=== PATIENT | male | born 1970 | race Caucasian/White ===

== ENCOUNTER 2016-10-20 18:10 | Emergency (ER) | payer OTHER ==
[2016-10-20 18:26] VITALS: BP 153/87; PULSE 95; TEMP 97.6; BMI 37.8
--- NOTE | 2016-10-20 18:27 | PDOC ---
Attending Attestation - Resident Resident Name: ReginaldAyad - ED Attending Attestation I have performed the following: I have examined & evaluated the patient, The case was reviewed & discussed with the resident, I agree w/resident's findings & plan, Exceptions are as noted - HPI HPI: 10/20/16 19:45 46y M hx of htn presents with worsening atraumatic L knee pain x 1 month, worse with ambulation/going down stairs/standing. Not significantly improved with tylenol, vicodin. No associated fever/chills, falls/injuries. 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 Pt went to PMD 1 month ago and then again yesterday when he got vicodin. On exam pt has mild tenderness of the medial aspect of his knee and medial aspect of the tibia. There is no erythema/induration/siognificant effusion. negative anterior/psterior draw, valgus/varus stress tests. will obtain xray to r/o occult fx, degereative dz pt given toradol for pain relief pt signed out to dr. Hernandez to fu with results and reassess the pt likely d/c with supportive measures and pmd and ortho fu - Physicial Exam PE: 10/23/16 08:28 see above - Medical Decision Making 10/23/16 08:28 see above
[2016-10-20] MEDS ORDERED: KETOROLAC TROMETHAMINE 60 MG/2 ML VIAL IM ONE (18:57)
[2016-10-20] MEDS ORDERED: KETOROLAC TROMETHAMINE 60 MG/2 ML VIAL ONE (19:00)
--- NOTE | 2016-10-20 19:19 | PDOC ---
History of Present Illness - General Chief Complaint: Pain Stated Complaint: LEFT KNEE PAIN Time Seen by Provider: 10/20/16 18:14 - History of Present Illness Initial Comments: 10/20/16 19:07 46 yo M with h/o HTN, DM, BL meniscus tear, and arthritis who presents with left knee pain. Pt. reports left knee pain following PCP visit 1 month ago. Upon manipulation of knee by PCP he states he heard a loud "pop." Following this visit his knee pain has rapidly, progressively worsened. He endorses difficulty with ambulation, back pain, and sharp shooting pains down medial leg. He denies swelling, redness, of involved knee. Denies fevers/chills, N/V, numbness/tingling, temperature changes, discoloration of extremities, or falls. Pain is refractory to Advil and Percocet. States that recently received Percocet from PCP yesterday with little to no relief and excessive drowsiness. Left knee brace aggravates pain and he states that BenGay cream has alleivated pain, but smell "bothers" him. Has h/o left knee varicosities and bilateral ultrasonography for suspected DVT 2 years ago at OSH. Denies recent travel, surgery, trauma. He requests steroid cream for left knee. 10/20/16 19:29 Past History - Past Medical History Allergies/Adverse Reactions: Allergies Allergy/AdvReac Type Severity Reaction Status Date / Time Penicillins Allergy Verified 10/14/11 00:38 Home Medications: Ambulatory Orders Metformin HCl [Glucophage] 1,000 mg PO BID 04/14/13 Amlodipine Besylate [Norvasc -] 5 mg PO DAILY 10/20/16 Diclofenac Sodium [Voltaren] 100 gm TP QID PRN #120 gel..gram. 10/20/16 Insulin Glargine,Hum.rec.anlog [Lantus Solostar PEN (NF)] 30 units SQ HS Liraglutide [Victoza -] 1.8 mg SQ DAILY@0700 10/20/16 Omeprazole 40 mg PO DAILY 10/20/16 Diabetes: Yes GI Disorders: Yes HTN: Yes Hypercholesterolemia: Yes - Immunization History Td Vaccination: Yes Immunization Up to Date: Yes - Psycho/Social/Smoking Cessation Hx Anxiety: No Suicidal Ideation: No Smoking Status: Yes Smoking History: Current every day smoker Have you smoked in the past 12 months: Yes Number of Cigarettes Smoked Daily: 5 Cigars Per Day: 0 Information on smoking cessation initiated: Yes 'Breaking Loose' booklet given: 04/14/13 Hx Alcohol Use: No Drug/Substance Use Hx: No Substance Use Type: None Hx Substance Use Treatment: No Review of Systems - Review of Systems Comments:: 10/20/16 19:20 GENERAL/CONSTITUTIONAL: No fever or chills. No weakness. HEAD, EYES, EARS, NOSE AND THROAT: No change in vision. No ear pain or discharge. No sore throat. CARDIOVASCULAR: No chest pain or shortness of breath RESPIRATORY: No cough, wheezing, or hemoptysis. GASTROINTESTINAL: No nausea, vomiting, diarrhea or constipation. GENITOURINARY: No dysuria, frequency, or change in urination. MUSCULOSKELETAL: + Left knee pain and lower back pain. SKIN: No rash NEUROLOGIC: No headache, vertigo, loss of consciousness, or change in strength/ sensation. ENDOCRINE: No increased thirst. No abnormal weight change HEMATOLOGIC/LYMPHATIC: No anemia, easy bleeding, or history of blood clots. ALLERGIC/IMMUNOLOGIC: No hives or skin allergy. *Physical Exam - Vital Signs Last Vital Signs Temp Pulse Resp BP Pulse Ox 97.6 F 95 H 16 153/87 98 10/20/16 18:14 10/20/16 18:14 10/20/16 18:14 10/20/16 18:14 10/20/16 18:14 - Physical Exam Comments: 10/20/16 19:23 GENERAL: Awake, alert, and fully oriented, in no acute distress HEAD: No signs of trauma, normocephalic, atraumatic NECK: Normal ROM, supple, no lymphadenopathy, JVD, or masses LUNGS: No distress, speaks full sentences, clear to auscultation bilaterally HEART: Regular rate and rhythm, normal S1 and S2, no murmurs, rubs or gallops, peripheral pulses normal and equal bilaterally. EXTREMITIES: + Varicosities through left extremity. Normal inspection, Normal range of motion, no edema. No clubbing or cyanosis. Knee Exam:Left knee tenderness to palpation at tibial plateau and diffuse medial patellar tenderness. Absent warmth, erythema, swelling, effusion, crepitus, or echymosis. Negative anterior or posterior drawer sign. Negative valgus/varus. Absent bony deformities. NEUROLOGICAL: Cranial nerves II through XII grossly intact. Normal speech, normal gait, no focal sensorimotor deficits SKIN: Warm, Dry, normal turgor, no rashes or lesions noted. Medical Decision Making - Medical Decision Making 46 yo M with h/o HTN, DM, BL meniscus tear, and arthritis who presents with left knee pain following manipulation of knee by PCP 1 month ago. He denies swelling, redness, of involved knee. Denies fevers/chills, N/V, numbness/ tingling, temperature changes, discoloration of extremities, or falls. Pain is refractory to Advil and Percocet. Physical exam reveals tibial plateau and diffuse medial patellar tenderness. Absent effusion/warmth/redness of left knee. Low suspicion for septic joint involvement. DDx: Tibial fracture, Ligamentous sprain/strain ED Course: - KNEE 2 POST LEFT - LEG TIB FIB LEFT - KETOROLAC INJECTION 60 MG IM *DC/Admit/Observation/Transfer Diagnosis at time of Disposition: Knee pain Qualifiers: Chronicity: acute Laterality: left Qualified Code(s): M25.562 - Pain in left knee - Discharge Dispostion Disposition: HOME Condition at time of disposition: Good - Prescriptions Prescriptions: Diclofenac Sodium [Voltaren] 100 gm TP QID PRN #120 gel..gram. PRN Reason: Pain - Referrals Referrals: Dany Rueda MD [Staff Physician] - Munira Patton [Primary Care Provider] - - Patient Instructions Printed Discharge Instructions: DI for Knee Pain Additional Instructions: return to the ED for severe pain, red hot tender swollen knee. Stop taking the celebrex while you are using the volatren. Make sure that you follow up with your PMD and orthopedics. - Attestations Physician Attestion: 10/24/16 06:18 I, Dr. Ayad Montelongo, attest that this document has been prepared under my direction and personally reviewed by me in its entirety. I further attest, that it accurately reflects all work, treatment, procedures and medical decision -making performed by me.
--- NOTE | 2016-10-20 20:13 | PDOC ---
*Physical Exam - Vital Signs Last Vital Signs Temp Pulse Resp BP Pulse Ox 97.6 F 95 H 16 153/87 98 10/20/16 18:14 10/20/16 18:14 10/20/16 18:14 10/20/16 18:14 10/20/16 18:14 ED Treatment Course - Medications Given in the ED: ED Medications Discontinued Medications Generic Name Dose Route Start Last Admin Trade Name Freq PRN Reason Stop Dose Admin Ketorolac Tromethamine 60 mg 10/20/16 18:57 10/20/16 19:07 Toradol Injection - IM 10/20/16 18:58 60 mg ONCE ONE Administration Medical Decision Making - Medical Decision Making 10/20/16 20:12 xrays show signs of osteoarthritis but no fracture. Will discharge patient home. Patient advised to stop celebrex which he has only been taking intermittently when he starts voltaren gel. Patient referred to orthopedics. *DC/Admit/Observation/Transfer Diagnosis at time of Disposition: Knee pain Qualifiers: Chronicity: acute Laterality: left Qualified Code(s): M25.562 - Pain in left knee - Discharge Dispostion Disposition: HOME Condition at time of disposition: Good Admit: No - Prescriptions Prescriptions: Diclofenac Sodium [Voltaren] 100 gm TP QID PRN #120 gel..gram. PRN Reason: Pain - Referrals Referrals: Munira Patton [Primary Care Provider] - Dany Rueda MD [Staff Physician] - - Patient Instructions Printed Discharge Instructions: DI for Knee Pain Additional Instructions: return to the ED for severe pain, red hot tender swollen knee. Stop taking the celebrex while you are using the volatren. Make sure that you follow up with your PMD and orthopedics. - Post Discharge Activity
== END 2016-10-20 20:28 | disposition home or self-care (01) ==
LOC: FER 18:10
PROC: 3E0233Z Introduction of Anti-inflammatory into Muscle, Percutaneous Approach (ICD-10-PCS; principal; 2016-10-20)
DX: M25.562 Pain in left knee (principal); I10 Essential (primary) hypertension; E11.9 Type 2 diabetes mellitus without complications; M19.90 Unspecified osteoarthritis, unspecified site; Z88.0 Allergy status to penicillin
CPT/HCPCS: 73560-TC-LT; 73590-TC-LT; 96372; 99282-25

== ENCOUNTER 2016-11-05 18:35 | Emergency (ER) | payer OTHER ==
--- NOTE | 2016-11-05 18:46 | PDOC ---
History of Present Illness <Brandon John - Last Filed: 11/05/16 18:46> <Aidee Ghotra - Last Filed: 11/05/16 19:40> <Valery Lopez - Last Filed: 11/05/16 19:40> - General Chief Complaint: Injury Stated Complaint: RT KNEE PAIN Time Seen by Provider: 11/05/16 18:46 Past History - Past Medical History Diabetes: Yes GI Disorders: Yes HTN: Yes Hypercholesterolemia: Yes - Immunization History Td Vaccination: Yes Immunization Up to Date: Yes - Psycho/Social/Smoking Cessation Hx Anxiety: No Suicidal Ideation: No Smoking Status: Yes Smoking History: Current every day smoker Have you smoked in the past 12 months: Yes Number of Cigarettes Smoked Daily: 10 Cigars Per Day: 0 Information on smoking cessation initiated: Yes 'Breaking Loose' booklet given: 11/05/16 Hx Alcohol Use: No Drug/Substance Use Hx: No Substance Use Type: None Hx Substance Use Treatment: No <Brandon John - Last Filed: 11/05/16 18:46> <Aidee Ghotra - Last Filed: 11/05/16 19:40> <Valery Lopez - Last Filed: 11/05/16 19:40> - Past Medical History Allergies/Adverse Reactions: Allergies Allergy/AdvReac Type Severity Reaction Status Date / Time Penicillins Allergy Verified 11/05/16 18:37 Home Medications: Ambulatory Orders Metformin HCl [Glucophage] 1,000 mg PO BID 04/14/13 Amlodipine Besylate [Norvasc -] 5 mg PO DAILY 10/20/16 Diclofenac Sodium [Voltaren] 100 gm TP QID PRN #120 gel..gram. 10/20/16 Insulin Glargine,Hum.rec.anlog [Lantus Solostar PEN (NF)] 30 units SQ HS Liraglutide [Victoza -] 1.8 mg SQ DAILY@0700 10/20/16 Omeprazole 40 mg PO DAILY 10/20/16 *Physical Exam - Vital Signs Last Vital Signs Temp Pulse Resp BP Pulse Ox 98.4 F 85 18 124/70 97 11/05/16 18:35 11/05/16 18:35 11/05/16 18:35 11/05/16 18:35 11/05/16 18:35 <Brandon John - Last Filed: 11/05/16 18:46> - Vital Signs Last Vital Signs Temp Pulse Resp BP Pulse Ox 98.4 F 85 18 124/70 97 11/05/16 18:35 11/05/16 18:35 11/05/16 18:35 11/05/16 18:35 11/05/16 18:35 <Aidee Ghotra - Last Filed: 11/05/16 19:40> - Vital Signs Last Vital Signs Temp Pulse Resp BP Pulse Ox 98.4 F 85 18 124/70 97 11/05/16 18:35 11/05/16 18:35 11/05/16 18:35 11/05/16 18:35 11/05/16 18:35 <Valery Lopez - Last Filed: 11/05/16 19:40> *DC/Admit/Observation/Transfer <Brandon John - Last Filed: 11/05/16 18:46> <Aidee Ghotra - Last Filed: 11/05/16 19:40> - Discharge Dispostion Admit: No <Valery Lopez - Last Filed: 11/05/16 19:40> Diagnosis at time of Disposition: Knee pain - Discharge Dispostion Disposition: AGAINST MEDICAL ADVICE Condition at time of disposition: Stable
[2016-11-05 18:47] VITALS: BP 124/70; PULSE 85; TEMP 98.4; BMI 37.8
== END 2016-11-05 19:42 | disposition left against medical advice (07) ==
LOC: FER 18:35
DX: M25.561 Pain in right knee (principal); F17.210 Nicotine dependence, cigarettes, uncomplicated; E11.9 Type 2 diabetes mellitus without complications; E78.00 Pure hypercholesterolemia, unspecified
CPT/HCPCS: 73560-TC-RT; 99282-25

== ENCOUNTER 2017-04-15 10:19 | Inpatient (IN) | payer OTHER ==
--- NOTE | 2017-04-15 09:15 | HP ---
Admitting History and Physical - Admission Chief Complaint: left knee osteoarthritis x years History of Present Illness: 46 year old male presenting in regard to his left knee. Longstanding history of left knee osteoarthritis. Patient complains of pain, limited ROM, difficulty ambulating and difficulty with ADLs. Patient has failed conservative treatment measures including PO medication, activity modification, injections and an exercise program. At this point, patient would like to proceed with a left total knee arthroplasty. History Source: Patient - Past Medical History Cardiovascular: Yes: HTN Gastrointestinal: Yes: GERD Psych: Yes: Depression Endocrine: Yes: Diabetes Mellitus - Past Surgical History Additional Past Surgical History: see written history & physical - Smoking History Smoking history: Current every day smoker Have you smoked in the past 12 months: Yes Aproximately how many cigarettes per day: 10 - Alcohol/Substance Use Hx Alcohol Use: No Home Medications - Allergies Allergies/Adverse Reactions: Allergies Allergy/AdvReac Type Severity Reaction Status Date / Time Penicillins Allergy Severe Swelling Verified 04/06/17 15:09 - Home Medications Home Medications: Ambulatory Orders Metformin HCl [Glucophage] 1,000 mg PO BID 04/14/13 Amlodipine Besylate [Norvasc -] 5 mg PO DAILY 10/20/16 Insulin Glargine,Hum.rec.anlog [Lantus Solostar PEN (NF)] 30 units SQ HS Liraglutide [Victoza -] 1.8 mg SQ DAILY@0700 10/20/16 Omeprazole 20 mg PO DAILY 10/20/16 Bupropion HCl [Bupropion HCl ER] 450 mg PO DAILY 04/06/17 Hydrochlorothiazide 25 mg PO DAILY 04/06/17 Oxycodone HCl/Acetaminophen [Percocet 5-325 mg Tablet] 1 tab PO Q4H PRN Simvastatin [Zocor -] 5 mg PO HS 04/06/17 Terbinafine HCl 250 mg PO DAILY 04/06/17 Review of Systems - Review of Systems Musculoskeletal: reports: Crepitus (left knee), Decreased ROM (left knee), Joint Pain (left knee), Joint Swelling (left knee) Physical Examination Constitutional: Yes: Well Nourished Eyes: Yes: Conjunctiva Clear HENT: Yes: Atraumatic, Normocephalic Neck: Yes: Supple Cardiovascular: Yes: Regular Rate and Rhythm Respiratory: Yes: Regular ...Rectal Exam: Yes: Deferred Musculoskeletal: Yes: Joint Stiffness (left knee), Joint Swelling (left knee) Assessment/Plan 46 year old male presenting in regard to his left knee. Longstanding history of left knee osteoarthritis. Patient complains of pain, limited ROM, difficulty ambulating and difficulty with ADLs. Patient has failed conservative treatment measures including PO medication, activity modification, injections and an exercise program. Pros, cons, risks, benefits and alternatives of a left total knee arthroplasty were discussed. Patient confirms their understanding, patient would like to proceed with a left total knee arthroplasty.
[~2017-04-15 10:19] MED LIST: CEFAZOLIN 2 GM in DEXTROSE 5%-WATER - 50 ML IVPB ONE; CELECOXIB 200 MG CAPSULE PO ONE; GABAPENTIN 300 MG CAPSULE (FP) PO ONE; PANTOPRAZOLE 40 MG TABLET (FP) PO ONE; ROPIVICAINE 0.2%/MORPH PF/KETOROLAC - 51ML DISP.SYRINGE IA ONE; TRANEXAMIC ACID 1000 MG/10 ML VIAL IVPUSH ONE; oxyCODONE HCL 10 MG SUSTAINED ACTING TABLET PO ONE
[2017-04-15] MEDS ORDERED: PANTOPRAZOLE 40 MG TABLET (FP) ONE (10:42)
[2017-04-15] MEDS ORDERED: GABAPENTIN 300 MG CAPSULE (FP) ONE (10:43)
[2017-04-15] MEDS ORDERED: CELECOXIB 200 MG CAPSULE ONE (10:43)
[2017-04-15] MEDS ORDERED: oxyCODONE HCL 10 MG SUSTAINED ACTING TABLET ONE (10:43)
[2017-04-15 11:36] VITALS: BMI 38.7
[2017-04-15] MEDS ORDERED: ceFAZolin SODIUM 1 GM VIAL ONE ×2 (13:31→15:55)
[2017-04-15] MEDS ORDERED: TRANEXAMIC ACID 1000 MG/10 ML VIAL ONE ×2 (13:31→15:56)
[2017-04-15] MEDS ORDERED: VANCOMYCIN 1,000 MG VIAL (RESTRICTED TO ID ONLY) ONE ×2 (13:32→15:56)
[2017-04-15] MEDS ORDERED: THROMBIN (BOVINE) 5,000 UNIT VIAL TP ONE (13:32)
[2017-04-15] MEDS ORDERED: ROPIVICAINE 0.2%/MORPH PF/KETOROLAC - 51ML DISP.SYRINGE IA ONE ×2 (13:32→18:03)
[2017-04-15] MEDS ORDERED: BUPIVACAINE HCL/PF 2.5 MG/ML - 30 ML VIAL IJ ONE (14:29)
[2017-04-15] MEDS ORDERED: DEXAMETHASONE SOD PHOSPHATE/PF 10 MG/ML SDV ONE (14:29)
[2017-04-15] MEDS ORDERED: MIDAZOLAM HCL 2 MG/2 ML SINGLE DOSE VIAL ONE ×2 (14:29→15:15)
[2017-04-15] MEDS ORDERED: BUPIVACAINE LIPOSOME/PF (EXPAREL) 266 MG/20 ML VIAL ONE (14:29)
[2017-04-15] MEDS ORDERED: GELATIN, ABSORBABLE 100 EACH SPONGE TP ONE (14:34)
[2017-04-15] MEDS ORDERED: SUCCINYLCHOLINE CHLORIDE 200 MG/10 ML VIAL ONE (15:15)
[2017-04-15] MEDS ORDERED: PROPOFOL 20 ML ONE ×7 (15:29→18:05)
[2017-04-15] MEDS ORDERED: DEXAMETHASONE SOD PHOSPHATE 4 MG/1 ML VIAL ONE (15:56)
[2017-04-15] MEDS ORDERED: ONDANSETRON 4 MG/2 ML VIAL ONE (15:56)
[2017-04-15] MEDS ORDERED: TRANEXAMIC ACID 1000 MG/10 ML VIAL IVPB ONE (18:03)
[2017-04-15] MEDS ORDERED: VANCOMYCIN 1,000 MG VIAL (RESTRICTED TO ID ONLY) IVPB ONE (18:04)
[2017-04-15] MEDS ORDERED: traMADol HCL 50 MG TABLET ONE (18:47)
[2017-04-15] MEDS ORDERED: ACETAMINOPHEN INJECTION 100 ML IVPB ONE (18:47)
[2017-04-15] MEDS ORDERED: KETOROLAC TROMETHAMINE 30 MG/1 ML VIAL ONE (18:48)
[2017-04-15] MEDS ORDERED: ONDANSETRON 4 MG/2 ML VIAL IVPUSH PRN ×2 (19:06→19:08)
[2017-04-15] MEDS ORDERED: oxyCODONE HCL 5 MG TABLET PO PRN (19:06)
--- NOTE | 2017-04-15 19:06 | OP ---
Operative Note - Note: Operative Date: 04/15/17 Pre-Operative Diagnosis: Left knee OA Operation: Left TKA Post-Operative Diagnosis: Same as Pre-op Surgeon: Chay Smart Program Consultant: Pat Penn Anesthesia: Spinal Estimated Blood Loss (mls): 300
[2017-04-15] MEDS ORDERED: MAGNESIUM HYDROX 2400MG/30ML ORAL SUSPENSION 30 ML CUP PO PRN (19:08)
[2017-04-15] MEDS ORDERED: MAG HYDROX/AL HYDROX/SIMETH 30 ML UNIT-DOSE CUP PO PRN (19:08)
[2017-04-15] MEDS ORDERED: LACTATED RINGERS SOLUTION 1,000 ML IV SCH (19:15)
[2017-04-15] MEDS: traMADol HCL 50 MG TABLET PO SCH (19:20)
[2017-04-15] MEDS: KETOROLAC TROMETHAMINE 30 MG/1 ML VIAL IVPUSH SCH (19:25)
[2017-04-15] MEDS: ACETAMINOPHEN 1000 MG/100 ML VIAL (NON FORMULARY) IVPB ONE (19:30)
[2017-04-15] MEDS ORDERED: GABAPENTIN 300 MG CAPSULE (FP) PO SCH (22:00)
[2017-04-15] MEDS: ASCORBIC ACID 500 MG TABLET (FP) PO SCH (22:19)
[2017-04-15] MEDS: SENNOSIDES/DOCUSATE COMBO (SENNA PLUS) TABLET (UD) PO SCH (22:20)
[2017-04-15] MEDS: ACETAMINOPHEN 325 MG TABLET (FP) PO SCH (22:20)
[2017-04-15] MEDS: GABAPENTIN 300 MG CAPSULE (FP) PO SCH (22:20)
[2017-04-15] MEDS: ATORVASTATIN CA 10 MG TABLET (FP) PO SCH (22:20)
[2017-04-15] MEDS: CELECOXIB 200 MG CAPSULE PO SCH (22:22)
[2017-04-15] MEDS: INSULIN DETEMIR 100 UNITS/ML MDV SQ SCH (22:26)
[2017-04-15] MEDS: oxyCODONE HCL 10 MG SUSTAINED ACTING TABLET PO SCH (22:55)
[2017-04-16] MEDS: oxyCODONE HCL 5 MG TABLET PO PRN ×5 (00:09→21:56)
[2017-04-16] MEDS ORDERED: DEXAMETHASONE SOD PHOSPHATE 10 MG/1 ML VIAL IVPB ONE (02:00)
[2017-04-16] MEDS: KETOROLAC TROMETHAMINE 30 MG/1 ML VIAL IVPUSH SCH ×3 (02:12→14:48)
[2017-04-16] MEDS: LACTATED RINGERS SOLUTION 1,000 ML IV SCH ×2 (02:27→20:09)
[2017-04-16] MEDS: ACETAMINOPHEN 325 MG TABLET (FP) PO SCH ×4 (06:11→23:17)
[2017-04-16] MEDS: ACETAMINOPHEN 1000 MG/100 ML VIAL (NON FORMULARY) IVPB ONE (07:29)
[2017-04-16] MEDS: ASPIRIN 325 MG TABLET PO SCH (08:05)
[2017-04-16] MEDS: INSULIN (NOVOLOG) ASPART 100 UNITS/ML 10ML VIAL SQ SCH ×5 (08:40→22:00)
[2017-04-16 09:00] LABS: ANION GAP 7 (8-16); BLOOD UREA NITROGEN 21 mg/dl (7-18); CALCIUM 8.1 mg/dl (8.4-10.2); CHLORIDE 97 mmol/L (98-107); CO2 26 mmol/L (22-28); POTASSIUM 4.4 mmol/L (3.5-5.1); SODIUM 130 mmol/L (136-145)
[2017-04-16 09:09] LABS: GLUCOSE,RANDOM 331 mg/dl (74-106); HEMATOCRIT 34.4 % (35.4-49); HEMOGLOBIN 11.7 GM/dl (11.7-16.9); MEAN CELL VOLUME 88.1 fl (80-96); MEAN PLT VOLUME 9.8 fl (7.5-11.1); PLATELET COUNT 222 K/MM3 (134-434); RBC 3.91 M/mm3 (4.00-5.60); RDW 13.7 % (11.9-15.9); WHITE BLOOD COUNT 15.8 K/mm3 (4.0-10.8)
[2017-04-16] MEDS ORDERED: INSULIN (NOVOLOG) ASPART 100 UNITS/ML 10ML VIAL ONE (09:32)
[2017-04-16] MEDS: LIRAGLUTIDE 0.6 MG/0.1 ML PEN.INJCTR SQ SCH (09:37)
[2017-04-16] MEDS: CELECOXIB 200 MG CAPSULE PO SCH ×2 (09:40→21:39)
[2017-04-16] MEDS: metFORMIN HCL 500 MG TABLET (FP) PO SCH ×2 (09:40→16:47)
[2017-04-16] MEDS: GABAPENTIN 300 MG CAPSULE (FP) PO SCH ×2 (09:40→21:40)
[2017-04-16] MEDS: MULTIVITAMINS (DAILY MVI) TABLET (FP) PO SCH (09:40)
[2017-04-16] MEDS: SENNOSIDES/DOCUSATE COMBO (SENNA PLUS) TABLET (UD) PO SCH ×2 (09:41→21:41)
[2017-04-16] MEDS: PANTOPRAZOLE 40 MG TABLET (FP) PO SCH (09:41)
[2017-04-16] MEDS: BUPROPION HCL 300 MG, BUPROPION HCL 150 MG PO SCH (09:41)
[2017-04-16] MEDS: oxyCODONE HCL 10 MG SUSTAINED ACTING TABLET PO SCH ×2 (09:43→21:40)
[2017-04-16] MEDS: amLODIPine BESYLATE 5 MG TABLET (FP) PO SCH (09:45)
[2017-04-16] MEDS: traMADol HCL 50 MG TABLET PO SCH ×6 (09:46→21:41)
[2017-04-16] MEDS ORDERED: PATIENT'S OWN MEDICATION (NON-FORMULARY) (Terbinafine Hcl [Terbinafine Hcl] 250 MG) PO SCH (10:00)
[2017-04-16] MEDS ORDERED: BUPROPION HCL 450 MG PO SCH (10:00)
[2017-04-16] MEDS: ASCORBIC ACID 500 MG TABLET (FP) PO SCH ×2 (10:26→21:40)
[2017-04-16] MEDS: CEFAZOLIN 2 GM/D5W 2 GM/50 ML ML IVPB SCH ×2 (10:26→19:41)
[2017-04-16] MEDS: HYDROCHLOROTHIAZIDE 25 MG TABLET (FP) PO SCH ×2 (10:27→10:58)
--- NOTE | 2017-04-16 11:48 | PN ---
Progress Note (short form) - Note Progress Note: ANESTHESIA POSTOP 46 YO M POD#1 S/P TKA S: Patient doing well, sitting in chair, tolerating PO, minimal pain O: Vitals WNL A/P: Patient doing well s/p spinal anesthetic with PNB. Continue current care. Encouraged IS and smoking cessation.
[2017-04-16] MEDS: ATORVASTATIN CA 10 MG TABLET (FP) PO SCH (21:41)
[2017-04-16] MEDS: INSULIN DETEMIR 100 UNITS/ML MDV SQ SCH (22:02)
--- NOTE | 2017-04-17 01:16 | PN ---
Progress Note (short form) - Note Progress Note: Pt seen and examined. Doing well. AVSS Selected Entries 04/16/17 21:00 Temperature 98.2 F Pulse Rate 81 Respiratory 18 Rate Blood Pressure 124/74 O2 Sat by Pulse 99 Oximetry (%) Oxygen Delivery Room Air Method Laboratory Tests 04/16/17 04/16/17 07:55 07:55 WBC 15.8 H Hgb 11.7 Hct 34.4 L Plt Count 222 Sodium 130 L Potassium 4.4 Chloride 97 L Carbon Dioxide 26 Anion Gap 7 L BUN 21 H Creatinine 1.0 Random Glucose 331 H* Gen: NAD LLE: c/d/i, NVID A/P 46yo male POD#1 s/p L TKA 1. D/C home in AM; f/u in office in 10-14 days 2. I had an extensive discussion with him about how important it to control his diabetes. He should f/u with his PCP MARK after discharge to discuss adjusting his insulin as well. I will refer him to an poultry farm laborer when I see him in the office.
--- NOTE | 2017-04-17 01:38 | DS ---
Physical Examination Vital Signs: Vital Signs Temperature 98.2 F 04/16/17 21:00 Pulse Rate 81 04/16/17 21:00 Respiratory Rate 18 04/16/17 21:00 Blood Pressure 124/74 04/16/17 21:00 O2 Sat by Pulse Oximetry (%) 99 04/16/17 21:00 Labs: CBC, BMP 04/16/17 07:55 04/16/17 07:55 Discharge Summary Reason For Visit: LEFT KNEE OSTEOARTHRITIS Current Active Problems Osteoarthritis of left knee (Acute) Procedures: Principal: Left TKA Hospital Course: Admitted for elective surgery. Procedure performed without complications. Pt received postoperative antibiotic prophylaxis and DVT ppx. Ambulated with physical therapy. Stable for discharge home with outpatient followup. Condition: Stable - Instructions Diet, Activity, Other Instructions: Dr. Smart - Knee Replacement Instructions Keep the Aquacel dressing on until removed by Dr. Smart in 10-14 days - it is antibacterial and waterproof and you can shower with it on. Call the office for a follow-up appointment with Dr. Smart in 10-14 days. [phone] Call your primary doctor for a follow-up appointment to discuss your diabetes medications. CHECK YOUR BLOOD GLUCOSE LEVEL SEVERAL TIMES DAILY DIRECTED BY YOUR PRIMARY DOCTOR. Take one Aspirin 325mg daily for 6 weeks to prevent blood clots in your legs. Resume taking omeprazole daily to protect against heartburn and ulcers. Take Celebrex 200mg twice daily for 30 days to reduce swelling and inflammation. Take Cephalexin (antibiotic) 500mg 3x/day for 2 weeks to protect against wound infection while the skin heals. Take a multivitamin, extra vitamin C supplement, and stool softener daily. For pain: *Mild pain (1-3/10): Take 1 Tramadol tablet every 4 hours as needed. Moderate pain (4-6/10): Take 1 Tramadol tablet and 1 Percocet tablet every 4 hours as needed. Severe pain (7-10/10): Take 1 Tramadol tablet and 2 Percocet tablets every 4 hours as needed. Activity: You can put as much weight on the operative leg as you want. Right after you get home, there will be a physical therapist coming to your house to help you walk around and bend/straighten your knee. After your follow-up appointment, you will be sent for more intensive outpatient physical therapy which will include machines and equipment that the home therapist cannot bring to your house. Always use a walker or cane for balance and to prevent falls. Disposition: [facility]NS/HOME HEALTH CARE - Home Medications Comprehensive Discharge Medication List: Ambulatory Orders Metformin HCl [Glucophage] 1,000 mg PO BID 04/14/13 Amlodipine Besylate [Norvasc -] 5 mg PO DAILY 10/20/16 Insulin Glargine,Hum.rec.anlog [Lantus Solostar PEN -] 30 units SQ HS 10/20/16 Liraglutide [Victoza -] 1.8 mg SQ DAILY@0700 10/20/16 Omeprazole 20 mg PO DAILY 10/20/16 Bupropion HCl [Bupropion HCl ER] 450 mg PO DAILY 04/06/17 Hydrochlorothiazide 25 mg PO DAILY 04/06/17 Simvastatin [Zocor -] 5 mg PO HS 04/06/17 Terbinafine HCl 250 mg PO DAILY 04/06/17 Ascorbic Acid [Vitamin C -] 500 mg PO BID tablet 04/17/17 Aspirin [ASA -] 325 mg PO DAILY@0800 #40 tablet 04/17/17 Celecoxib [CeleBREX -] 200 mg PO BID #60 capsule 04/17/17 Celecoxib [Celebrex -] 200 mg PO BID #60 capsule 04/17/17 Cephalexin Monohydrate [Keflex -] 500 mg PO TID #42 capsule 04/17/17 Cephalexin Monohydrate [Keflex -] 500 mg PO TID #42 capsule 04/17/17 Multivitamins [Multivit ([facility] Formulary)] 1 tab PO DAILY tab 04/17/17 Oxycodone HCl/Acetaminophen [Percocet 5-325 mg Tablet] 1 - 2 tab PO Q4H PRN #90 tablet MDD 8 04/17/17 Sennosides/Docusate Sodium [Pericolace -] 1 tablet PO BID tablet 04/17/17 Tramadol HCl [Ultram -] 50 mg PO Q4H PRN #90 tablet MDD 6 04/17/17
[2017-04-17] MEDS: traMADol HCL 50 MG TABLET PO SCH ×2 (02:35→08:08)
[2017-04-17] MEDS ORDERED: PT OWN MED DRAWER 7, Y5N ONE (06:17)
[2017-04-17] MEDS: ACETAMINOPHEN 325 MG TABLET (FP) PO SCH (06:25)
[2017-04-17] MEDS: metFORMIN HCL 500 MG TABLET (FP) PO SCH (06:25)
[2017-04-17] MEDS: LIRAGLUTIDE 0.6 MG/0.1 ML PEN.INJCTR SQ SCH (06:34)
[2017-04-17] MEDS: oxyCODONE HCL 5 MG TABLET PO PRN ×2 (06:39→09:59)
[2017-04-17] MEDS: INSULIN (NOVOLOG) ASPART 100 UNITS/ML 10ML VIAL SQ SCH (06:43)
[2017-04-17 07:35] VITALS: BP 125/59; PULSE 72; TEMP 98
[2017-04-17 07:48] LABS: HEMATOCRIT 31.9 % (35.4-49); HEMOGLOBIN 10.5 GM/dl (11.7-16.9); MCH 28.8 pg (25.7-33.7); MCHC 32.8 g/dl (32.0-35.9); MEAN CELL VOLUME 87.9 fl (80-96); PLATELET COUNT 215 K/MM3 (134-434); RBC 3.63 M/mm3 (4.00-5.60); RDW 13.8 % (11.9-15.9); WHITE BLOOD COUNT 10.6 K/mm3 (4.0-10.8)
[2017-04-17] MEDS: ASPIRIN 325 MG TABLET PO SCH (08:08)
[2017-04-17 08:17] LABS: ANION GAP 9 (8-16); BLOOD UREA NITROGEN 19 mg/dl (7-18); CALCIUM 8.2 mg/dl (8.4-10.2); CHLORIDE 97 mmol/L (98-107); CO2 26 mmol/L (22-28); CREATININE 0.8 mg/dl (0.6-1.3); GLUCOSE,RANDOM 160 mg/dl (74-106); POTASSIUM 3.5 mmol/L (3.5-5.1); SODIUM 132 mmol/L (136-145)
[2017-04-17] MEDS: CELECOXIB 200 MG CAPSULE PO SCH (09:46)
[2017-04-17] MEDS: GABAPENTIN 300 MG CAPSULE (FP) PO SCH (09:47)
[2017-04-17] MEDS: SENNOSIDES/DOCUSATE COMBO (SENNA PLUS) TABLET (UD) PO SCH (09:48)
[2017-04-17] MEDS: amLODIPine BESYLATE 5 MG TABLET (FP) PO SCH (09:48)
[2017-04-17] MEDS: PANTOPRAZOLE 40 MG TABLET (FP) PO SCH (09:48)
[2017-04-17] MEDS: oxyCODONE HCL 10 MG SUSTAINED ACTING TABLET PO SCH (09:48)
[2017-04-17] MEDS: BUPROPION HCL 300 MG, BUPROPION HCL 150 MG PO SCH (09:49)
[2017-04-17] MEDS: ASCORBIC ACID 500 MG TABLET (FP) PO SCH (09:49)
[2017-04-17] MEDS: MULTIVITAMINS (DAILY MVI) TABLET (FP) PO SCH (09:49)
[2017-04-17] MEDS: HYDROCHLOROTHIAZIDE 25 MG TABLET (FP) PO SCH (09:57)
--- NOTE | 2017-04-23 15:43 | PATH ---
Surgical Pathology Report Patient Name: HERMAN AGUILAR Med. Rec. #: [id number] /Age/Gender: 1970 (Age: 46) / M Account: [id number] Location: [facility] Taken: 04/15/2017 Received: 04/15/2017 Reported: 04/23/2017 Physicians: Chay Smart M.D. Specimen(s) Received A: LEFT KNEE SYNOVIAL TISSUE B: LEFT KNEE BONES AND TISSUE Clinical History Left knee osteoarthritis Final Diagnosis A. SOFT TISSUE, LEFT KNEE, EXCISION: HYPERPLASTIC SYNOVIUM WITH MILD CHRONIC INFLAMMATION AND VASCULAR ECTASIA. B. BONE AND SOFT TISSUE, LEFT KNEE, REPLACEMENT: DEGENERATIVE JOINT DISEASE. Electronically Signed Ermias Sanders M.D. Gross Description A. Received in formalin labeled "left knee synovial tissue," is a 2.8 x 2.7 x 1.3 cm aggregate of santana-yellow, irregular portions of soft tissue, consistent with synovial tissue. [employer] sections are submitted in one cassette. B. Received in formalin labeled "left knee bones and tissue," is a 15.5 x 13.0 x 2.5 cm aggregate of santana-yellow, irregular portions of bone and soft tissue. The tibial plateau measures 8.4 x 6.0 x 1.7 cm. There is a 2.7 cm greatest dimension area of eburnation identified. The remaining articular surfaces are santana-yellow and diffusely granular. The underlying trabecular bone is yellow and hard. [employer] sections are submitted in one cassette, following decalcification. /04/17/2017 saudi04/17/2017
== END 2017-04-17 13:44 | disposition home health service (06) | DRG 302 ==
LOC: FM/S 10:19
PROVIDERS: ADMIT Student in an Organized Health Care Education/Training Program; ATTEND Student in an Organized Health Care Education/Training Program
PROC: 0SRD0JZ Replacement of Left Knee Joint with Synthetic Substitute, Open Approach (ICD-10-PCS; principal; 2017-04-15 16:05)
DX: M17.12 Unilateral primary osteoarthritis, left knee (principal); K21.9 Gastro-esophageal reflux disease without esophagitis; I10 Essential (primary) hypertension; F17.210 Nicotine dependence, cigarettes, uncomplicated; E11.9 Type 2 diabetes mellitus without complications; Z79.4 Long term (current) use of insulin; F32.9 Major depressive disorder, single episode, unspecified
CPT/HCPCS: 36415; 73560-TC-LT; 80048; 82962; 84703; 85027; 88304-TC; 88311-TC; 94760; 97116-GP; 97162-GP; J1100

== ENCOUNTER 2017-04-18 22:06 | Emergency (ER) | payer OTHER ==
[2017-04-18 22:25] VITALS: BP 158/93; PULSE 100; TEMP 98.1; BMI 38.7
--- NOTE | 2017-04-18 22:49 | PDOC ---
History of Present Illness - General Chief Complaint: Revisit,Wound Recheck Stated Complaint: LEFT KNEE REPLACEMENT/BLEEDING FROM SITE Time Seen by Provider: 04/18/17 22:25 - History of Present Illness Initial Comments: 04/19/17 06:20 presents with bleeding 4 days post TKR referred in by ortho Timing/Duration: 1-3 hours Severity: mild Modifying Factors: improves with: movement Associated Symptoms: reports: denies symptoms Past History - Past Medical History Allergies/Adverse Reactions: Allergies Allergy/AdvReac Type Severity Reaction Status Date / Time Penicillins Allergy Severe Swelling Verified 04/18/17 22:09 Home Medications: Ambulatory Orders Metformin HCl [Glucophage] 1,000 mg PO BID 04/14/13 Amlodipine Besylate [Norvasc -] 5 mg PO DAILY 10/20/16 Insulin Glargine,Hum.rec.anlog [Lantus Solostar PEN -] 30 units SQ HS 10/20/16 Liraglutide [Victoza -] 1.8 mg SQ DAILY@0700 10/20/16 Omeprazole 20 mg PO DAILY 10/20/16 Bupropion HCl [Bupropion HCl ER] 450 mg PO DAILY 04/06/17 Hydrochlorothiazide 25 mg PO DAILY 04/06/17 Simvastatin [Zocor -] 5 mg PO HS 04/06/17 Terbinafine HCl 250 mg PO DAILY 04/06/17 Ascorbic Acid [Vitamin C -] 500 mg PO BID tablet 04/17/17 Aspirin [ASA -] 325 mg PO DAILY@0800 #40 tablet 04/17/17 Celecoxib [Celebrex -] 200 mg PO BID #60 capsule 04/17/17 Cephalexin Monohydrate [Keflex -] 500 mg PO TID #42 capsule 04/17/17 Multivitamins [Multivit ([facility] Formulary)] 1 tab PO DAILY tab 04/17/17 Oxycodone HCl/Acetaminophen [Percocet 5-325 mg Tablet] 1 - 2 tab PO Q4H PRN #90 tablet MDD 8 04/17/17 Sennosides/Docusate Sodium [Pericolace -] 1 tablet PO BID tablet 04/17/17 Tramadol HCl [Ultram -] 50 mg PO Q4H PRN #90 tablet MDD 6 04/17/17 Anemia: No Asthma: No Cancer: No Cardiac Disorders: No CVA: No COPD: No CHF: No Dementia: No Diabetes: Yes (ON INSULIN SINCE 2009,ORAL 2002) GI Disorders: Yes (GERD) Disorders: No HTN: Yes Hypercholesterolemia: Yes Liver Disease: No Seizures: No Thyroid Disease: No - Surgical History Abdominal Surgery: Yes (REPAIR UMBILICAL HERNIA WITH MESH 2015) Appendectomy: No Cardiac Surgery: No Cholecystectomy: Yes (2014) Lung Surgery: No Neurologic Surgery: No Orthopedic Surgery: No - Immunization History Td Vaccination: Yes Immunization Up to Date: Yes - Suicide/Smoking/Psychosocial Hx Smoking Status: Yes Smoking History: Current every day smoker Have you smoked in the past 12 months: Yes Number of Cigarettes Smoked Daily: 10 Cigars Per Day: 0 Information on smoking cessation initiated: Yes 'Breaking Loose' booklet given: 04/15/17 Hx Alcohol Use: No Drug/Substance Use Hx: No Substance Use Type: None Hx Substance Use Treatment: No Review of Systems - Review of Systems Able to Perform ROS?: Yes All Other Systems: Reviewed and Negative *Physical Exam - Vital Signs Last Vital Signs Temp Pulse Resp BP Pulse Ox 98.1 F 100 H 16 158/93 98 04/18/17 22:21 04/18/17 22:21 04/18/17 22:21 04/18/17 22:21 04/18/17 22:21 - Physical Exam General Appearance: Yes: Nourished. No: Apparent Distress HEENT: positive: Normal Voice Neck: positive: Supple Respiratory/Chest: positive: Normal Breath Sounds Cardiovascular: positive: Regular Rhythm Extremity: positive: Other (oozing dark blood from surgical wound) Integumentary: positive: Normal Color Neurologic: positive: Alert Medical Decision Making - Medical Decision Making 04/19/17 06:22 oozing from surgical wound stable for outpt fu with his surgeon *DC/Admit/Observation/Transfer Diagnosis at time of Disposition: Post-operative complication Qualifiers: Surgical complication system/body Area: musculoskeletal system Surgical complication type: hematoma Procedure type: musculoskeletal Qualified Code(s): M96.840 - Postprocedural hematoma of a musculoskeletal structure following a musculoskeletal system procedure - Discharge Dispostion Disposition: HOME Condition at time of disposition: Stable - Referrals Referrals: Chay Smart MD [Primary Care Provider] - - Patient Instructions Printed Discharge Instructions: How to Care for a Surgical Wound - Post Discharge Activity
== END 2017-04-18 23:11 | disposition home or self-care (01) ==
LOC: FER 22:06
DX: M96.840 Postprocedural hematoma of a musculoskeletal structure following a musculoskeletal system procedure (principal); E11.9 Type 2 diabetes mellitus without complications; Z79.4 Long term (current) use of insulin; F17.210 Nicotine dependence, cigarettes, uncomplicated; K21.9 Gastro-esophageal reflux disease without esophagitis; Z96.652 Presence of left artificial knee joint
CPT/HCPCS: 99281-25

== ENCOUNTER 2019-12-15 02:42 | Emergency (ER) | payer OTHER ==
[2019-12-15 02:52] VITALS: BP 143/96; PULSE 90; TEMP 98.5; BMI 35.9
--- OUTSIDE RECORDS SUMMARY | 2019-12-15 02:57 | XMS ---
:1970 Author Organization [facility] Care Team Providers Name Role Phone ROGER BAUTISTA Unavailable Unavailable [facility], HVC9 Unavailable Unavailable LUIS ALBERTO CROUCH Unavailable Unavailable DWIGHT QUEVEDO Unavailable Unavailable Nehemiah Jovel MD Unavailable Unavailable Nehemiah Jovel MD Unavailable Unavailable Nehemiah Jovel MD Unavailable Unavailable Nehemiah Jovel MD Unavailable Unavailable Nehemiah Jovel MD Unavailable Unavailable DELBERT CASTILLO M.D., [id number] Unavailable Unavaila ble Re-disclosure Warning The records that you are about to access may contain information from federally- assisted alcohol or drug abuse programs. If such information is present, then the following federally mandated warning applies: This information has been disclosed to you from records protected by federal confidentiality rules (42 CFR part 2). The federal rules prohibit you from making any further disclosure of this information unless further disclosure is expressly permitted by the written consent of the person to whom it pertains or as otherwise permitted by 42 CFR part 2. A general authorization for the release of medical or other information is NOT sufficient for this purpose. The Federal rules restrict any use of the information to criminally investigate or prosecute any alcohol or drug abuse patient.The records that you are about to access may contain highly sensitive health information, the redisclosure of which is protected by Article 27-F of the [facility] Public Health law. If you continue you may haveaccess to information: Regarding HIV / AIDS; Provided by facilities licensed or operated by the [facility] Office of Mental Health; or Provided by the [facility] Office for People With Developmental Disabilities. If such information is present, then the following [facility] mandated warning applies: This information has been disclosed to you from confidential records which are protected by state law. State law prohibits you from making any further disclosure of this information without the specific written consent of the person to whom it pertains, or as otherwise permitted by law. Any unauthorized further disclosure in violation of state law may result in a fine or snf sentence or both. A general authorization for the release of medical or other information is NOT sufficient authorization for further disclosure. Allergies and Adverse Reactions Type Description Substance Reaction Status Data Source(s ) Drug allergy Penicillins Penicillins Rash [place] [facility] Encounters Encounter Providers Location Date Indications Data Source(s ) Outpatient [facility]: [id number] [facility] Estella Rinaldi M.D.Attender: [email or web address] Fabiana CROUCHitter: [id number] DELBERT CASTILLO M.D. Outpatient Attender: MIKO 11/20/2019 [facility]: 06:00:00 AM [facility] e LUIS ALBERTO CROUCH [email or web address] Outpatient Attender: Nehemiah 11/06/2019 [facility] MDAdmitter: 06:00:00 [facility]: [id number] [facility] 06[facility]00 AM Estella Rinaldi M.D.Attender: [email or web address] DWIGHT QUEVEDOAdmitter: [id number] DELBERT CASTILLO M.D. Outpatient Attender: [id number] 10/21/2019 [facility] 11:17:49 AM [facility] joaquin) EDT Patient admitted. Outpatient Attender: MIKO 09/25/2019 06:00:00 AM [facility] Alanistender: SAE [facility] [employer] DWIGHT FranceAdmitter: LUIS ALBERTO CROUCH Outpatient Attender: Nehemiah 09/05/2019 06:00:00 AM [facility] MDAdmitter: [employer] Nehemiah Jovel MD Outpatient Attender: MIKO 08/28/2019 06:00:00 AM [facility] Fabianaitter: LAST CROUCH [facility] [employer] LUIS ALBERTO Outpatient Attender: Nehemiah 08/04/2019 06:00:00 AM [facility] MDAdmitter: [facility] Tengah Nehemiah Jovel MD Outpatient Attender: MIKO 07/31/2019 06:00:00 AM [facility] JOANAdmitter: [facility] LUIS ALBERTO Outpatient Attender: Nehemiah 07/13/2019 06:00:00 AM [facility] MDAdmitter: [facility] Nehemiah Jovel MD Outpatient Attender: MIKO 07/03/2019 06:00:00 AM [facility] ANUPANAttender: Nehemiah [facility] MDAdmitter: LUIS ALBERTO CROUCH Outpatient Attender: MIKO 06/19/2019 06:00:[address] [facility]: [facility]hem[facility] MDAdmitter: LUIS ALBERTO CROUCH Outpatient Attender: MIKO 05/15/2019 06:00:00 AM [facility] LUIS ALBERTO Outpatient Attender: [address] 05/09/2019 11:46:59 AM [facility] ([facility]) Patient admitted. Outpatient Attender: SAE 04/17/2019 06:00:00 AM [facility] DWIGHT FranceAttender: MIKO [facility] NORBETRdmitter: DWIGHT QUEVEDO Outpatient Attender: [address] 04/04/2019 09:37:07 AM [facility] ([facility]) Patient admitted. Outpatient Attender: [address] 04/04/2019 09:36:52 AM [facility] ([facility]) Patient admitted. Outpatient Attender: [address] 04/04/2019 09:32:07 AM [facility] ([facility]) Patient admitted. Outpatient Attender: SAE 03/27/2019 06:00:00 AM [facility] DWIGHT FranceAdmitter: [facility] DWIGHT QUEVEDO Outpatient Attender: MIKO 03/06/2019 06:00:00 AM [facility] MIKO [facility] LUIS ALBERTO Outpatient Attender: MIKO 02/20/2019 06:00:00 AM [facility] MIKO [facility] LUIS ALBERTO Outpatient Attender: MIKO, 01/09/2019 06:00:00 AM [facility] JOANAdmitter: MIKO [facility] [employer] LUIS ALBERTO Outpatient Attender: SAE, 12/26/2018 06:00:00 AM [facility] DWIGHT FranceAdmitter: [place] DWIGHT QUEVEDO Outpatient Attender: MIKO, 12/05/2018 06:00:00 AM [facility] JOANAttender: [employer] DWIGHT QUEVEDOAdmitter: LUIS ALBERTO CROUCH Outpatient Attender: MIKO, 10/31/2018 06:00:00 [facility] LILY, [employer] PIALIAdmitter: LUIS ALBERTO CROUCH Outpatient Attender: LILY, 10/21/2018 06:00:00 AM [facility] PIALIAdmitter: LILY [employer] [facility] PIALI Outpatient Attender: LILY, 09/13/2018 06:00:00 AM [facility] PIALIAttender: [employer] DWIGHT QUEVEDOAdmitter: ROGER BAUTISTA Outpatient Attender: LILY, 08/29/2018 06:00:00 AM [facility] PIALIAdmitter: LILY [facility] PIFACUNDO Outpatient Attender: SAE, 08/19/2018 06:00:00 AM [facility] DWIGHT FranceAdmitter: [place] DWIGHT QUEVEDO Outpatient Attender: LILY, 07/22/2018 06:00:00 AM [facility] PIALIAttender: Jaxtr DWIGHT QUEVEDOAdmitter: ROGER BAUTISTA Outpatient 07/08/2018 10:18:00 [facility] 07/07/2018 04:01:38 PM [facility] ([facility]) Outpatient Attender: LILY, 06/24/2018 06:00:00 AM [facility] PIALIAttender: Jaxtr DWIGHT QUEVEDOAdmitter: ROGER BAUTISTA Outpatient Attender: SAE 06/10/2018 06:00:00 AM [facility] DWIGHT FranceAdmitter: [facility] [employer] DWIGHT QUEVEDO Outpatient Attender: LILY 05/18/2018 06:00:00 AM [facility] PIALIAdmitter: LILY EDER [facility] [employer] ROGER Outpatient Attender: SAE 05/06/2018 06:00:00 AM [facility] DWIGHT FranceAdmitter: [employer] DWIGHT QUEVEDO Problems, Conditions, and Diagnoses Code Display Name Description Problem Type Effective Data Sour ce(s) Dates Z88.0 Allergy status to ALLERGY STATUS TO Diagnosis 11/30/2019 [place] penicillin PENICILLIN 06:00:00 AM [facility] [employer] Z88.8 Allergy status to ALLERGY STATUS TO Diagnosis 11/30/2019 [place] other drugs, OTH DRUG/MEDS/BIOL 06:00:00 AM [employer] medicaments and SUBST STATUS EDT [facility] biological [employer] substances status Z79.4 shelter AUTO PARKER Diagnosis 11/30/2019 [place] (current) use of (CURRENT) USE OF 06:00:00 AM C [employer] insulin INSULIN EDT Care [employer] Z79.84 shelter FPC Diagnosis 11/30/2019 [place] (current) use of (CURRENT) USE OF 06:00:00 AM [email or web address] oral hypoglycemic ORAL HYPOGLYCEMIC EDT [facility] drugs DRUGS [employer] E66.9 Obesity, OBESITY, Diagnosis 11/30/2019 [place] unspecified UNSPECIFIED 06:00:00 AM [facility] EDT Care [employer] E11.9 Type 2 diabetes TYPE 2 DIABETES Diagnosis 11/30/2019 [place] mellitus without MELLITUS WITHOUT 06:00:00 AM [email or web address] complications COMPLICATIONS EDT Care [employer] I10 Essential ESSENTIAL Diagnosis 11/30/2019 [place] (primary) (PRIMARY) 06:00:00 AM [facility] hypertension HYPERTENSION EDT Care [employer] E78.00 Pure PURE Diagnosis 11/30/2019 [place] hypercholesterolem HYPERCHOLESTEROLEM 06:00:00 AM [facility] ia, unspecified IA, UNSPECIFIED EDT Care [employer] F12.10 Cannabis abuse, CANNABIS ABUSE, Diagnosis 11/30/2019 [place] uncomplicated UNCOMPLICATED 06:00:00 AM [facility] EDT Care [employer] F17.200 Nicotine NICOTINE Diagnosis 11/30/2019 [place] dependence, DEPENDENCE, 06:00:00 AM [facility] unspecified, UNSPECIFIED, EDT Care uncomplicated UNCOMPLICATED Corporat ion 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 Diagnosis 11/30/2019 [facility] [place] 06:00:00 AM [facility] EDT Care Corporation F41.1 Generalized GENERALIZED Diagnosis 11/30/2019 [place] anxiety disorder ANXIETY DISORDER 06:00:00 AM [facility] EDT [employer] F33.1 Major depressive MAJOR DEPRESSIVE Diagnosis 11/30/2019 Dann naranjo disorder, DISORDER, 06:00:00 AM [facility] recurrent, RECURRENT, EDT Care moderate [employer] Z87.891 Personal history PERSONAL HISTORY Diagnosis 09/25/2019 D[place] naranjo of nicotine OF NICOTINE 06:00:00 AM [facility] dependence DEPENDENCE EDT [employer] Z72.0 Tobacco use TOBACCO USE Diagnosis 07/31/2019 [place] 06:00:00 AM [facility] EDT [employer] F17.210 Nicotine NICOTINE Diagnosis 05/15/2019 [place] dependence, DEPENDENCE, 06:00:00 AM [facility] cigarettes, CIGARETTES, EST Care uncomplicated UNCOMPLICATED Corporat ion F17.211 Nicotine NICOTINE Diagnosis 04/17/2019 [place] dependence, DEPENDENCE, 06:00:00 AM [facility] cigarettes, in CIGARETTES, IN EST Care remission [employer]
[2019-12-15] MEDS ORDERED: KETOROLAC TROMETHAMINE 60 MG/2 ML VIAL ONE (03:13)
[2019-12-15] MEDS ORDERED: KETOROLAC TROMETHAMINE 60 MG/2 ML VIAL IM ONE (03:19)
--- NOTE | 2019-12-15 03:19 | PDOC ---
History of Present Illness - General Chief Complaint: Back Pain Stated Complaint: BACK SPASMS Time Seen by Provider: 12/15/19 03:06 History Source: Patient Exam Limitations: No Limitations - History of Present Illness Initial Comments: 12/15/19 03:14 This is a 49-year-old male who comes in complaining of back pain and back spasms. Patient does have a muscle relaxant at home but he does not want to take it because it makes him drowsy. Otherwise patient took some ibuprofen prior to coming given. Patient has a long history of chronic back pain and knee pain. Allergies: as per nursing notes Past Medical History: none Social history: Lives with family. No smoking. No alcohol. No illicit drugs. Surgical history: None General: No fevers or chills, no weakness, no weight loss HEENT: No change in vision. No sore throat,. No ear pain CardioVascular: no chest discomfort. No shortness of breath Respiratory:No cough, or wheezing. Gastrointestinal: no nausea, vomiting, diarrhea or constipation, No rectal bleeding Genitourinary: No dysuria, hematuria, or frequency Musculoskeletal: Back pain and spasm Neurologic: No headache, vertigo, dizziness or loss of consciousness Psychiatric: nor depression Skin: No rashes or easy bruising Endocrine: no increased thirst or abnormal weight change Allergic: no skin or latex allergy All other systems reviewed and normal GENERAL: The patient is awake, alert, and fully oriented, in no acute distress. HEENT:Head is normal with no signs of trauma. Eyes: Pupils equal, round and reactive to light, Ears, and Throat are normal. Neck is supple. No Lymphadenopathy. EXTREMITIES:atraumatic, Normal range of motion, no edema. Back: There is no pain on palpation of the cervical thoracic or lumbar spine however there is para paraspinal spasms noted also tenderness on palpation over the right sciatic notch. Neurovascular distally is intact NEUROLOGICAL: Normal speech, normal gait. PSYCH: Normal mood, normal affect. SKIN: Warm, Dry, normal turgor, no rashes or lesions noted. Assessment and plan: This is a 49-year-old male with back pain and spasm. Patient given Toradol and a prescription for naproxen was sent to his pharmacy. Patient was told to take he is to relax at night to help him sleep Past History - Medical History Allergies/Adverse Reactions: Allergies Allergy/AdvReac Type Severity Reaction Status Date / Time Penicillins Allergy Severe Swelling Verified 04/18/17 22:09 Home Medications: Ambulatory Orders metFORMIN HCL [Glucophage] 1,000 mg PO BID 04/14/13 Amlodipine Besylate [Norvasc -] 5 mg PO DAILY 10/20/16 Insulin Glargine,Hum.rec.anlog [Lantus Solostar PEN -] 30 units SQ HS 10/20/16 Liraglutide [Victoza -] 1.8 mg SQ DAILY@0700 10/20/16 Omeprazole 20 mg PO DAILY 10/20/16 Bupropion HCl [Bupropion HCl ER] 450 mg PO DAILY 04/06/17 Hydrochlorothiazide 25 mg PO DAILY 04/06/17 Simvastatin [Zocor -] 5 mg PO HS 04/06/17 Terbinafine HCl 250 mg PO DAILY 04/06/17 Ascorbic Acid [Vitamin C -] 500 mg PO BID tablet 04/17/17 Aspirin [ASA -] 325 mg PO DAILY@0800 #40 tablet 04/17/17 Celecoxib [Celebrex -] 200 mg PO BID #60 capsule 04/17/17 Cephalexin Monohydrate [Keflex -] 500 mg PO TID #42 capsule 04/17/17 Multivitamins [Multivit ([facility] Formulary)] 1 tab PO DAILY tab 04/17/17 Oxycodone HCl/Acetaminophen [Percocet 5-325 mg Tablet] 1 - 2 tab PO Q4H PRN #90 tablet MDD 8 04/17/17 Sennosides/Docusate Sodium [Pericolace -] 1 tablet PO BID tablet 04/17/17 traMADol HCL [Ultram -] 50 mg PO Q4H PRN #90 tablet MDD 6 04/17/17 Naproxen 500 mg PO BID #28 tablet 12/15/19 Anemia: No Asthma: No Cancer: No Cardiac Disorders: No CVA: No COPD: No CHF: No Dementia: No Diabetes: Yes (ON INSULIN SINCE 2009,ORAL 2002) GI Disorders: Yes (GERD) Disorders: No HTN: Yes Hypercholesterolemia: Yes Liver Disease: No Seizures: No Thyroid Disease: No - Surgical History Abdominal Surgery: Yes (REPAIR UMBILICAL HERNIA WITH MESH 2015) Appendectomy: No Cardiac Surgery: No Cholecystectomy: Yes (2014) Lung Surgery: No Neurologic Surgery: No Orthopedic Surgery: No - Immunization History Td Vaccination: Yes Immunization Up to Date: Yes - Psycho-Social/Smoking History Smoking Status: Yes Smoking History: Former smoker Have you smoked in the past 12 months: No Number of Cigarettes Smoked Daily: 10 Cigars Per Day: 0 Information on smoking cessation initiated: No 'Breaking Loose' booklet given: 04/15/17 *Physical Exam - Vital Signs Last Vital Signs Temp Pulse Resp BP Pulse Ox 98.5 F 90 18 143/96 98 12/15/19 02:45 12/15/19 02:45 12/15/19 02:45 12/15/19 02:45 12/15/19 02:45 Discharge - Discharge Information Problems reviewed: Yes Clinical Impression/Diagnosis: Back muscle spasm Back pain Qualifiers: Back pain location: low back pain Chronicity: acute Back pain laterality: bilateral Sciatica presence: with sciatica Sciatica laterality: sciatica of right side Qualified Code(s): M54.41 - Lumbago with sciatica, right side Condition: Stable Disposition: HOME - Admission No - Additional Discharge Information Prescriptions: Naproxen 500 mg PO BID #28 tablet - Follow up/Referral Referrals: Alina Moctezuma MD [Primary Care Provider] - - Patient Discharge Instructions Additional Instructions: For the pain take naproxen 1 tablet twice a day. Get the prescription filled At nighttime take your muscle relaxant if you are having difficulty times sleeping. Return to the emergency department immediately with ANY new, persistent or worsening symptoms. Continue any medications as previously prescribed by your physician. You should follow up with your primary doctor as soon as possible regarding today's emergency department visit. . Please make sure your doctor reviews the results of your emergency evaluation. Thank you for coming to the Emergency Department today for your care. It was a pleasure to see you today. Please note that your evaluation is INCOMPLETE until you follow-up with your doctor. - Post Discharge Activity
== END 2019-12-15 03:30 | disposition home or self-care (01) ==
LOC: FER 02:42
PROC: 3E0233Z Introduction of Anti-inflammatory into Muscle, Percutaneous Approach (ICD-10-PCS; principal; 2019-12-15)
DX: M62.838 Other muscle spasm (principal); M54.41 Lumbago with sciatica, right side
CPT/HCPCS: 99284-25

== ENCOUNTER 2020-04-08 16:27 | Emergency (ER) | payer OTHER ==
[2020-04-08 16:56] VITALS: PULSE 99; TEMP 97.8; BMI 36.9
[2020-04-08] MEDS ORDERED: ACETAMINOPHEN 500 MG TABLET (FP) PO ONE (17:01)
[2020-04-08] MEDS ORDERED: ACETAMINOPHEN 325 MG TABLET (FP) ONE (17:28)
[2020-04-08 17:51] VITALS: BP 138/78
== END 2020-04-08 17:53 | disposition home or self-care (01) ==
LOC: FER 16:27
DX: R91.1 Solitary pulmonary nodule (principal); U07.1 COVID-19
CPT/HCPCS: 71045-TC-FY; 87804; 99284-25; C9803; U0003

== ENCOUNTER → 2022-01-20 | Emergency (ER) | payer OTHER ==
[2022-01-20 16:26] VITALS: BP 140/70; PULSE 81; RESP 16; TEMP 98.1; BMI 36.9
== END | disposition left against medical advice (07) ==
LOC: FER 16:17
DX: S99.912A Unspecified injury of left ankle, initial encounter (principal); X50.0XXA Overexertion from strenuous movement or load, initial encounter
CPT/HCPCS: 99283-25

== ENCOUNTER 2023-04-30 16:13 | Emergency (ER) | payer OTHER ==
[2023-04-30 16:28] VITALS: BP 145/79; PULSE 94; RESP 17; TEMP 98.9; BMI 36.9
[2023-04-30] MEDS ORDERED: KETOROLAC TROMETHAMINE 30 MG/1 ML VIAL ONE (16:32)
[2023-04-30] MEDS: KETOROLAC TROMETHAMINE 30 MG/1 ML VIAL IM ONE (16:41)
[2023-04-30] MEDS ORDERED: METHOCARBAMOL 500 MG TABLET ONE (17:57)
[2023-04-30] MEDS: METHOCARBAMOL 500 MG TABLET PO ONE (18:03)
== END 2023-04-30 18:07 | disposition home or self-care (01) ==
LOC: FER 16:13
PROC: 3E0233Z Introduction of Anti-inflammatory into Muscle, Percutaneous Approach (ICD-10-PCS; principal; 2023-04-30)
DX: M54.50 Low back pain, unspecified (principal); S39.012A Strain of muscle, fascia and tendon of lower back, initial encounter; V49.40XA Driver injured in collision with unspecified motor vehicles in traffic accident, initial encounter; Y92.410 Unspecified street and highway as the place of occurrence of the external cause
CPT/HCPCS: 72070-TC-FY; 72110-TC-FY; 99284-25